=== PATIENT | male | born 1970 | race Caucasian/White ===

== ENCOUNTER 2018-09-04 07:08 | Emergency (ER) | payer OTHER ==
[~2018-09-04] VITALS: Ht 170.2 cm; Wt 113.0 kg
[2018-09-04] MEDS ORDERED: IBUPROFEN 800MG TABLET PO ONE (07:45)
[2018-09-04 09:43] VITALS: BP 128/87
== END 2018-09-04 10:04 | disposition home or self-care (01) ==
LOC: ER 07:08
DX: S70.12XA Contusion of left thigh, initial encounter (principal); S80.12XA Contusion of left lower leg, initial encounter; S50.311A Abrasion of right elbow, initial encounter; Z79.82 Long term (current) use of aspirin; V89.2XXA Person injured in unspecified motor-vehicle accident, traffic, initial encounter; Y93.89 Activity, other specified; Y92.89 Other specified places as the place of occurrence of the external cause; Y99.8 Other external cause status
CPT/HCPCS: 73552; 73590; 93971; 99284